=== PATIENT | male | born 1940 | race Caucasian/White ===

== ENCOUNTER 2018-03-03 17:54 | Observation (INO) ==
[2018-03-03] MEDS ORDERED: Ipratropium/Albuterol Neb 3 ML IH ONE (18:11)
[2018-03-03] MEDS ORDERED: methylPREDNISolone 125 MG/2 ML VIAL IVP ONE (18:11)
[2018-03-03 18:32] LABS: Basophils # 0.1 K/mcL (0.0-0.2); Eosinophils # 0.2 K/mcL (0.0-0.6); Eosinophils % 2.6 %; Hematocrit 38.6 % (37.5-50.1); Hemoglobin 13.2 g/dL (12.9-16.9); Immature Granulocytes % 0.4 % (0-4); Lymphocytes # 1.4 K/mcL (0.6-4.6); Mean Corpuscular HGB Conc 34.2 g/dL (31.6-35.5); Mean Corpuscular Hemoglobin 31.7 pg (28.0-33.3); Mean Corpuscular Volume 92.8 fL (83.0-100.0); Mean Platelet Volume 9.2 fL (9.4-12.4); Monocytes # 0.7 K/mcL (0.0-1.3); Monocytes % 9.4 %; Neutrophils # 5.3 K/mcL (1.6-8.9); Platelet Count 247 K/mcL (140-400); Red Blood Count 4.16 M/mcL (4.19-5.50); Red Cell Distribution Width 14.1 % (11.5-14.5); Segmented Neutrophils % 68.6 %
--- NOTE | 2018-03-03 18:48 | Emergency Department Note ---
Disposition Clinical Impression: Acute exacerbation of chronic obstructive airways disease Chest pain Qualifiers: Chest pain type: chest pain on breathing Qualified Code(s): R07.1 - Chest pain on breathing Community acquired pneumonia Qualifiers: Laterality: unspecified laterality Qualified Code(s): J18.9 - Pneumonia, unspecified organism Disposition: Admitted As Inpatient Condition: Fair Referrals: Ochoa Alva Jr, MD [Primary Care Provider] - Forms: ED Satisfaction Letter General Adult HPI - General Chief complaint: ED Chest Pain Stated complaint: CP Time Seen by Provider: 03/03/18 18:08 - History of Present Illness Pain Scale: 6 - Related Data Home Medications Medication Instructions Recorded Confirmed Albuterol Sulfate [Albuterol 2 puff IH Q4HR PRN 08/08/15 03/03/18 Inhaler] Aspirin 81 mg PO QAM 08/08/15 03/03/18 Oxygen 2.5 - 3 l NS AD 08/08/15 03/03/18 Roflumilast [Daliresp] 500 mcg PO QAM 08/08/15 03/03/18 Acetylcysteine 600 mg PO BID 06/29/16 03/03/18 [Z-[id number]-Cysteine] Isosorbide MONOnitrate [Isosorbide 120 mg PO DAILY 06/29/16 03/03/18 Mononitrate ER] Fluticasone Propionate Nasal 1 spr NS DAILY 03/03/18 03/03/18 [Flonase] Losartan [Cozaar] 25 mg PO DAILY 03/03/18 03/03/18 Montelukast [Singulair] 10 mg PO DAILY 03/03/18 03/03/18 Nitroglycerin [Nitrostat] 0.4 mg SL Q5M PRN 03/03/18 03/03/18 Umeclidinium [place] [Incruse 1 puff IH DAILY 03/03/18 03/03/18 Ellipta] Previous Rx's Medication Instructions Recorded Furosemide [Lasix] 40 mg PO BID #30 tab 07/01/16 Allergies Allergy/AdvReac Type Severity Reaction Status Date / Time Penicillins AdvReac See Verified 03/03/18 20:54 Comments Past Medical History - Past Medical History Medical history: Reports: COPD, coronary artery disease, hyperlipidemia, hypertension, myocardial infarction Surgical history: Reports: angioplasty/stent, herniorrhaphy Psychiatric history: Reports: anxiety - Social History Smoking Status: Former smoker Smokeless Tobacco Status: No Alcohol use: Reports: occasionally Drug use: Reports: none Course Vital Signs Temperature 97.9 F 03/03/18 17:59 Pulse Rate 105 03/03/18 17:59 Respiratory Rate 22 03/03/18 17:59 Blood Pressure 141/81 03/03/18 17:59 O2 Sat by Pulse Oximetry 89 03/03/18 17:59 Temperature 97.9 F 03/03/18 18:49 Pulse Rate 105 03/03/18 18:49 Respiratory Rate 20 03/03/18 18:49 Blood Pressure 141/81 03/03/18 18:49 O2 Sat by Pulse Oximetry 94 03/03/18 18:49 Oxygen Delivery Oxygen Delivery Nasal Cannula Medical Decision Making - Lab Data Result diagrams: 03/03/18 18:24 03/03/18 18:24 Lab Results 03/03/18 03/03/18 03/03/18 Range/Units 18:24 18:24 18:24 WBC 7.8 (4.3-11.1) K/mcL RBC 4.16 L (4.19-5.50) M/mcL Hgb 13.2 (12.9-16.9) g/dL Hct 38.6 (37.5-50.1) % MCV 92.8 (83.0-100.0) fL MCH 31.7 (28.0-33.3) pg MCHC 34.2 (31.6-35.5) g/dL RDW 14.1 (11.5-14.5) % Plt Count 247 (140-400) K/mcL MPV 9.2 L (9.4-12.4) fL Immature Gran % 0.4 (0-4) % Seg Neutrophils % 68.6 % Lymphocytes % 18.0 % Monocytes % 9.4 % Eosinophils % 2.6 % Basophils % 1.0 % Neutrophils # 5.3 (1.6-8.9) K/mcL Lymphocytes # 1.4 (0.6-4.6) K/mcL Monocytes # 0.7 (0.0-1.3) K/mcL Eosinophils # 0.2 (0.0-0.6) K/mcL Basophils # 0.1 (0.0-0.2) K/mcL D-Dimer (0-500) ng/mLFEU Sodium 136 (136-145) mEq/L Potassium 4.4 (3.5-5.1) mEq/L Chloride 102 (98-107) mEq/L Carbon Dioxide 31 H (23-29) mEq/L BUN 13 (8-23) mg/dL Creatinine 0.97 (0.70-1.30) mg/dL Est GFR ( Amer) > 60 (> 60) Est GFR (Non-Af Amer) > 60 (> 60) BUN/Creatinine Ratio 13 (6-26) Glucose 99 (70-105) mg/dL Calculated Osmolality 282 (280-300) Lactic Acid 1.1 (0.5-2.2) mmol/L Calcium 9.2 (8.6-10.3) mg/dL Total Bilirubin 0.3 (0.3-1.0) mg/dL Direct Bilirubin 0.0 (0.0-0.2) mg/dL Indirect Bilirubin 0.3 (0.0-1.2) mg/dL AST 20 (13-39) Units/L ALT 23 (7-52) Units/L Alkaline Phosphatase 64 (34-104) Units/L Troponin I < 0.03 (< 0.04) ng/mL B-Natriuretic Peptide (Less than 100) pg/mL Serum Total Protein 7.2 (6.4-8.9) g/dL Albumin 3.9 (3.5-5.7) g/dL Globulin 3.3 (2.4-3.5) g/dL Albumin/Globulin Ratio 1.2 (1.1-2.2) Lipase 16 (11-82) Units/L Urine Color (Yellow) Urine Clarity (Clear) Urine pH (5.0-8.0) pH Units Ur Specific Radiant (1.010-1.025) Urine Protein (Neg-Trace) mg/dL Urine Glucose (UA) (Normal) mg/dL Urine Ketones (Negative) mg/dL Urine Blood (Negative) Urine Nitrite (Negative) Urine Bilirubin (Negative) Urine Urobilinogen (Normal) mg/dL Ur Leukocyte Esterase (Negative) Ur Culture Indicated? (NO) 03/03/18 03/03/18 03/03/18 Range/Units 18:24 18:24 19:27 WBC (4.3-11.1) K/mcL RBC (4.19-5.50) M/mcL Hgb (12.9-16.9) g/dL Hct (37.5-50.1) % MCV (83.0-100.0) fL MCH (28.0-33.3) pg MCHC (31.6-35.5) g/dL RDW (11.5-14.5) % Plt Count (140-400) K/mcL MPV (9.4-12.4) fL Immature Gran % (0-4) % Seg Neutrophils % % Lymphocytes % % Monocytes % % Eosinophils % % Basophils % % Neutrophils # (1.6-8.9) K/mcL Lymphocytes # (0.6-4.6) K/mcL Monocytes # (0.0-1.3) K/mcL Eosinophils # (0.0-0.6) K/mcL Basophils # (0.0-0.2) K/mcL D-Dimer 794 H (0-500) ng/mLFEU Sodium (136-145) mEq/L Potassium (3.5-5.1) mEq/L Chloride (98-107) mEq/L Carbon Dioxide (23-29) mEq/L BUN (8-23) mg/dL Creatinine (0.70-1.30) mg/dL Est GFR ( Amer) (> 60) Est GFR (Non-Af Amer) (> 60) BUN/Creatinine Ratio (6-26) Glucose (70-105) mg/dL Calculated Osmolality (280-300) Lactic Acid (0.5-2.2) mmol/L Calcium (8.6-10.3) mg/dL Total Bilirubin (0.3-1.0) mg/dL Direct Bilirubin (0.0-0.2) mg/dL Indirect Bilirubin (0.0-1.2) mg/dL AST (13-39) Units/L ALT (7-52) Units/L Alkaline Phosphatase (34-104) Units/L Troponin I (< 0.04) ng/mL B-Natriuretic Peptide 20 (Less than 100) pg/mL Serum Total Protein (6.4-8.9) g/dL Albumin (3.5-5.7) g/dL Globulin (2.4-3.5) g/dL Albumin/Globulin Ratio (1.1-2.2) Lipase (11-82) Units/L Urine Color Yellow (Yellow) Urine Clarity Clear (Clear) Urine pH 5.5 (5.0-8.0) pH Units Ur Specific [place] 1.020 (1.010-1.025) Urine Protein Negative (Neg-Trace) mg/dL Urine Glucose (UA) Normal (Normal) mg/dL Urine Ketones Negative (Negative) mg/dL Urine Blood Negative (Negative) Urine Nitrite Negative (Negative) Urine Bilirubin Negative (Negative) Urine Urobilinogen Normal (Normal) mg/dL Ur Leukocyte Esterase Negative (Negative) Ur Culture Indicated? NO (NO) Attestation Statement - Attestation Attestation: I examined this patient and my medical decision-making was reviewed with the REPAIRER SWITCHGEAR/PA/Advanced Practice Nurse/Resident Physician. I agree with the documented findings, disposition and treatment plan as described except to the extent set forth below. The patient presents with chest pain and this is a pressure feeling and no radiation. There is a pleuritic aspect. Does have associated dyspnea but no diaphoresis. The patient does have COPD and does use home oxygen. His last cigarette was 4 or 5 months ago. Patient will receive DuoNeb, sign Medrol, labs including troponin and d-dimer. I did review the patient's EKG showing normal sinus rhythm with a rate of 69 and without acute ischemic change. Results pending. 1847 Patient does have pneumonia seen on chest x-ray and will be admitted for treatment with intravenous antibiotics. I am not able to identify recent hospitalizations or need for treatment of hospital-acquired pneumonia. The patient does have severe COPD with home oxygen and does have a tenuous status which will require admission for treatment of the pneumonia and to ensure that the patient improves 2033
[2018-03-03 19:00] LABS: BUN/Creatinine Ratio 13 (6-26); Blood Urea Nitrogen 13 mg/dL (8-23); Calcium 9.2 mg/dL (8.6-10.3); Carbon Dioxide 31 mEq/L (23-29); Chloride 102 mEq/L (98-107); Glucose 99 mg/dL (70-105); Osmolality,Calculated 282 (280-300); Potassium 4.4 mEq/L (3.5-5.1); Sodium 136 mEq/L (136-145); Troponin I < 0.03 ng/mL (< 0.04); eGFR For African Americans > 60 (> 60); eGFR For Non-African Americans > 60 (> 60)
[2018-03-03 19:32] LABS: Alanine Aminotransferase 23 Units/L (7-52); Albumin 3.9 g/dL (3.5-5.7); Albumin/Globulin Ratio 1.2 (1.1-2.2); Alkaline Phosphatase 64 Units/L (34-104); Aspartate Amino Transferase 20 Units/L (13-39); Bilirubin,Indirect 0.3 mg/dL (0.0-1.2); Bilirubin,Total 0.3 mg/dL (0.3-1.0); Globulin 3.3 g/dL (2.4-3.5); Lipase 16 Units/L (11-82); Total Protein 7.2 g/dL (6.4-8.9)
[2018-03-03 19:38] LABS: Bilirubin,Urine Negative (Negative); Blood,Urine Negative (Negative); Clarity,Urine Clear (Clear); Color,Urine Yellow (Yellow); Glucose,Urine (UA) Normal (Normal); Ketones,Urine Negative (Negative); Leukocyte Esterase,Urine Negative (Negative); Nitrite,Urine Negative (Negative); PH,Urine 5.5 pH Units (5.0-8.0); Protein,Urine Negative (Neg-Trace); Urobilinogen,Urine Normal (Normal)
[2018-03-03] MEDS ORDERED: Isovue-370 500 ML INFUS..BTL IV ONE (20:00)
[2018-03-03] MEDS ORDERED: Azithromycin 500 MG in D5% in Water 250 ML IVPB ONE (20:11)
[2018-03-03] MEDS ORDERED: cefTRIAXone 1,000 MG in Water for inj. (sterile) 20 ML 10 ML IVP ONE (20:12)
--- NOTE | 2018-03-03 20:16 | Emergency Department Note ---
Disposition Clinical Impression: Acute exacerbation of chronic obstructive airways disease Chest pain Qualifiers: Chest pain type: chest pain on breathing Qualified Code(s): R07.1 - Chest pain on breathing Community acquired pneumonia Qualifiers: Laterality: unspecified laterality Qualified Code(s): J18.9 - Pneumonia, unspecified organism Disposition: Admitted As Inpatient Condition: Fair Referrals: Ochoa Alva Jr, MD [Primary Care Provider] - Forms: ED Satisfaction Letter Time of Disposition: 20:56 Chest Pain HPI - General Chief Complaint: ED Chest Pain Stated Complaint: CP Time Seen by Provider: 03/03/18 18:08 Source: patient, family Limitations: no limitations - History of Present Illness Pt complaint: chest pain Onset (ago): hour(s) (approximately 90 minutes [employer]) Duration: constant Pain Location: substernal Severity scale (1-10): 6 Quality: heaviness Pain Radiation: none Worsens with: inspiration Associated symptoms: Reports: nausea, dyspnea, cough (thick green, dark sputum) . Denies: vomiting, diaphoresis, fever, leg swelling (not increased from his normal) Treatments prior to arrival chest pain: oxygen - Related Data On Oral Contraceptives: No Home Medications Medication Instructions Recorded Confirmed Albuterol Sulfate [Albuterol 2 puff IH Q4HR PRN 08/08/15 03/03/18 Inhaler] Aspirin 81 mg PO QAM 08/08/15 03/03/18 Oxygen 2.5 - 3 l NS AD 08/08/15 03/03/18 Roflumilast [Daliresp] 500 mcg PO QAM 08/08/15 03/03/18 Acetylcysteine 600 mg PO BID 06/29/16 03/03/18 [[id number]-Cysteine] Isosorbide MONOnitrate [Isosorbide 120 mg PO DAILY 06/29/16 03/03/18 Mononitrate ER] Fluticasone Propionate Nasal 1 spr NS DAILY 03/03/18 03/03/18 [Flonase] Losartan [Cozaar] 25 mg PO DAILY 03/03/18 03/03/18 Montelukast [Singulair] 10 mg PO DAILY 03/03/18 03/03/18 Nitroglycerin [Nitrostat] 0.4 mg SL Q5M PRN 03/03/18 03/03/18 Umeclidinium [place] [Incruse 1 puff IH DAILY 03/03/18 03/03/18 Ellipta] Previous Rx's Medication Instructions Recorded Furosemide [Lasix] 40 mg PO BID #30 tab 07/01/16 Allergies Allergy/AdvReac Type Severity Reaction Status Date / Time Penicillins AdvReac See Verified 03/03/18 20:54 Comments Constitutional: Denies: fever, chills Eyes: Denies: vision change Cardiovascular: Reports: as per HPI Respiratory: Reports: as per HPI Gastrointestinal: Reports: abdominal pain, nausea. Denies: vomiting (bilateral lower abdomen, "burning") Neurological: Reports: other (lightheadedness). Denies: numbness, paresthesias Chest Pain PMH - Past Medical History Medical history: Reports: COPD, coronary artery disease, hyperlipidemia, hypertension, myocardial infarction Surgical history: Reports: angioplasty/stent, herniorrhaphy Psychiatric history: Reports: anxiety - Social History Smoking Status: Former smoker Alcohol use: Reports: occasionally Drug use: Reports: none Physical Exam - General Limitations: no limitations General appearance: alert, in distress (mild), obese - Head Head exam: atraumatic, normocephalic - Eye Eye exam: Present: normal appearance, other (pupils equal bilaterally) - Neck Neck exam: Present: normal inspection, other (supple) - Chest Chest inspection: Present: normal inspection, symmetric chest wall rise. Absent : tenderness - Respiratory Respiratory exam: Present: wheezes (anterior), other (decreased breath sounds bilaterally, no rales or rhonchi). Absent: respiratory distress, accessory muscle use - Cardiovascular Cardiovascular exam: Present: normal rhythm, tachycardia, normal heart sounds. Absent: systolic murmur, diastolic murmur - Abdominal Exam Abdominal exam: Present: soft, tenderness Abdominal tenderness: Present: RLQ, LLQ, mild - Extremities Exam Extremities exam: Present: pedal edema - Neurological Exam Neurological exam: Present: alert, oriented X3, other (moves all extremities spontaneously). Absent: motor sensory deficit - Skin Skin exam: Present: warm, dry, intact. Absent: diaphoresis Course Vital Signs Temperature 97.9 F 03/03/18 17:59 Pulse Rate 105 03/03/18 17:59 Respiratory Rate 22 03/03/18 17:59 Blood Pressure 141/81 03/03/18 17:59 O2 Sat by Pulse Oximetry 89 03/03/18 17:59 Temperature 97.9 F 03/03/18 18:49 Pulse Rate 105 03/03/18 18:49 Respiratory Rate 20 03/03/18 18:49 Blood Pressure 141/81 03/03/18 18:49 O2 Sat by Pulse Oximetry 94 03/03/18 18:49 Oxygen Delivery Oxygen Delivery Nasal Cannula Chest Pain - MDM Narrative Medical decision making narrative: Pt is a 77-year-old gentleman with PMH of CHF, CAD, COPD on home oxygen presented to the emergency department for chest pain and shortness of breath. On arrival patient was afebrile, tachycardic at 105, normotensive, respirations 22, pulse ox 89%. EKG showed regular rate and NSR--no ST elevation or depression was seen and no T-wave abnormalities. Chest x-ray showed a small amount of right lung base opacity suspicious for pneumonia; no evidence for pleural effusion. Lab work shows WBC within normal limits, troponin < 0.03, BNP is not elevated, lactic acid 1.1, and was most notable for elevated d-dimer at 794. Placed on 2 L nasal cannula, received DuoNeb treatment, oxygenation has improved to 94%. For suspected COPD exacerbation secondary to pneumonia, he was given 125 mg IV Solu-Medrol, empiric antibiotic coverage with Rocephin and azithromycin. Getting his elevated d-dimer and pleuritic nature of his chest pain a CTA chest will be ordered for possibility pulmonary embolism - Lab Data Lab results reviewed: Yes I reviewed the patient's lab results. Result diagrams: 03/03/18 18:24 03/03/18 18:24 Lab Results 03/03/18 03/03/18 03/03/18 Range/Units 18:24 18:24 18:24 WBC 7.8 (4.3-11.1) K/mcL RBC 4.16 L (4.19-5.50) M/mcL Hgb 13.2 (12.9-16.9) g/dL Hct 38.6 (37.5-50.1) % MCV 92.8 (83.0-100.0) fL MCH 31.7 (28.0-33.3) pg MCHC 34.2 (31.6-35.5) g/dL RDW 14.1 (11.5-14.5) % Plt Count 247 (140-400) K/mcL MPV 9.2 L (9.4-12.4) fL Immature Gran % 0.4 (0-4) % Seg Neutrophils % 68.6 % Lymphocytes % 18.0 % Monocytes % 9.4 % Eosinophils % 2.6 % Basophils % 1.0 % Neutrophils # 5.3 (1.6-8.9) K/mcL Lymphocytes # 1.4 (0.6-4.6) K/mcL Monocytes # 0.7 (0.0-1.3) K/mcL Eosinophils # 0.2 (0.0-0.6) K/mcL Basophils # 0.1 (0.0-0.2) K/mcL D-Dimer (0-500) ng/mLFEU Sodium 136 (136-145) mEq/L Potassium 4.4 (3.5-5.1) mEq/L Chloride 102 (98-107) mEq/L Carbon Dioxide 31 H (23-29) mEq/L BUN 13 (8-23) mg/dL Creatinine 0.97 (0.70-1.30) mg/dL Est GFR ( Amer) > 60 (> 60) Est GFR (Non-Af Amer) > 60 (> 60) BUN/Creatinine Ratio 13 (6-26) Glucose 99 (70-105) mg/dL Calculated Osmolality 282 (280-300) Lactic Acid 1.1 (0.5-2.2) mmol/L Calcium 9.2 (8.6-10.3) mg/dL Total Bilirubin 0.3 (0.3-1.0) mg/dL Direct Bilirubin 0.0 (0.0-0.2) mg/dL Indirect Bilirubin 0.3 (0.0-1.2) mg/dL AST 20 (13-39) Units/L ALT 23 (7-52) Units/L Alkaline Phosphatase 64 (34-104) Units/L Troponin I < 0.03 (< 0.04) ng/mL B-Natriuretic Peptide (Less than 100) pg/mL Serum Total Protein 7.2 (6.4-8.9) g/dL Albumin 3.9 (3.5-5.7) g/dL Globulin 3.3 (2.4-3.5) g/dL Albumin/Globulin Ratio 1.2 (1.1-2.2) Lipase 16 (11-82) Units/L Urine Color (Yellow) Urine Clarity (Clear) Urine pH (5.0-8.0) pH Units Ur Specific [place] (1.010-1.025) Urine Protein (Neg-Trace) mg/dL Urine Glucose (UA) (Normal) mg/dL Urine Ketones (Negative) mg/dL Urine Blood (Negative) Urine Nitrite (Negative) Urine Bilirubin (Negative) Urine Urobilinogen (Normal) mg/dL Ur Leukocyte Esterase (Negative) Ur Culture Indicated? (NO) 03/03/18 03/03/18 03/03/18 Range/Units 18:24 18:24 19:27 WBC (4.3-11.1) K/mcL RBC (4.19-5.50) M/mcL Hgb (12.9-16.9) g/dL Hct (37.5-50.1) % MCV (83.0-100.0) fL MCH (28.0-33.3) pg MCHC (31.6-35.5) g/dL RDW (11.5-14.5) % Plt Count (140-400) K/mcL MPV (9.4-12.4) fL Immature Gran % (0-4) % Seg Neutrophils % % Lymphocytes % % Monocytes % % Eosinophils % % Basophils % % Neutrophils # (1.6-8.9) K/mcL Lymphocytes # (0.6-4.6) K/mcL Monocytes # (0.0-1.3) K/mcL Eosinophils # (0.0-0.6) K/mcL Basophils # (0.0-0.2) K/mcL D-Dimer 794 H (0-500) ng/mLFEU Sodium (136-145) mEq/L Potassium (3.5-5.1) mEq/L Chloride (98-107) mEq/L Carbon Dioxide (23-29) mEq/L BUN (8-23) mg/dL Creatinine (0.70-1.30) mg/dL Est GFR ( Amer) (> 60) Est GFR (Non-Af Amer) (> 60) BUN/Creatinine Ratio (6-26) Glucose (70-105) mg/dL Calculated Osmolality (280-300) Lactic Acid (0.5-2.2) mmol/L Calcium (8.6-10.3) mg/dL Total Bilirubin (0.3-1.0) mg/dL Direct Bilirubin (0.0-0.2) mg/dL Indirect Bilirubin (0.0-1.2) mg/dL AST (13-39) Units/L ALT (7-52) Units/L Alkaline Phosphatase (34-104) Units/L Troponin I (< 0.04) ng/mL B-Natriuretic Peptide 20 (Less than 100) pg/mL Serum Total Protein (6.4-8.9) g/dL Albumin (3.5-5.7) g/dL Globulin (2.4-3.5) g/dL Albumin/Globulin Ratio (1.1-2.2) Lipase (11-82) Units/L Urine Color Yellow (Yellow) Urine Clarity Clear (Clear) Urine pH 5.5 (5.0-8.0) pH Units Ur Specific [place] 1.020 (1.010-1.025) Urine Protein Negative (Neg-Trace) mg/dL Urine Glucose (UA) Normal (Normal) mg/dL Urine Ketones Negative (Negative) mg/dL Urine Blood Negative (Negative) Urine Nitrite Negative (Negative) Urine Bilirubin Negative (Negative) Urine Urobilinogen Normal (Normal) mg/dL Ur Leukocyte Esterase Negative (Negative) Ur Culture Indicated? NO (NO) - EKG Data EKG attestation: Yes I reviewed and interpreted this EKG. EKG shows normal: sinus rhythm Rate: tachycardia Rhythm: NSR
[2018-03-03] MEDS ORDERED: Maalox Oral Soln 30 mL PO PRN (22:44)
[2018-03-03] MEDS ORDERED: Acetaminophen 325 MG TABLET PO PRN (23:18)
[2018-03-03] MEDS ORDERED: Naloxone 0.4 MG/ML INJ IVP PRN (23:18)
[2018-03-03] MEDS ORDERED: GI Cocktail 40 ML EACH PO ONE (23:25)
[2018-03-03] MEDS ORDERED: Nitroglycerin 0.4 MG TAB.SUBL SL PRN (23:33)
[2018-03-03] MEDS ORDERED: Levofloxacin 500 MG/100 ML 500 MG/100 ML BAG IVPB SCH (23:45)
[2018-03-04] MEDS: Ipratropium/Albuterol Neb 3 ML IH SCH ×7 (00:06→23:22)
--- NOTE | 2018-03-04 00:11 | Internal Med History&Physical ---
<Lino Geronimo - Last Filed: 03/04/18 00:50> Date of Encounter: 03/04/18 Time of Encounter: 00:08 Internal Medicine - H&P: HPI Chief complaint: chest pain Admitted From: Emergency Dept Plans for Post Hospital Care: Home History of present illness: Mr. Marcial is a 77 year old male with past medical history of COPD(on 2 L of home oxygen continuously), chronic respiratory failure, coronary artery disease , hypertension, hyperlipidemia, TIFF, former smoker (put 6 months ago). Patient arrived to the emergency department with multiple complaints. He stated that he started to have chest pain since 5 PM this evening that was substandard all, not radiating, 07/04, worse with movement, better with rest. He states that his chest pain is a lot better currently. He denies fevers or chills. Patient also complains of abdominal pain that started around 2 PM today. He denies having any diarrhea, nausea, vomiting. Patient admits to shortness of breath with change in his sputum that is now dark green (usually clear), increased oxygen requirement from baseline(sometimes oxygen requirement goes as high as 4 L). He denies hematuria, hematochezia, dizziness. Past Med Surg Social Fam HX - Past Medical History Medical history: COPD, coronary artery disease, hyperlipidemia, hypertension, myocardial infarction Psychiatric history: anxiety, depression - Past Surgical History Surgical History: herniorrhaphy, tonsilectomy - Social History Smoking Status: Former smoker Smokeless Tobacco Status: No Alcohol use: occasionally Drug use: none - Family History Father Living Status: Hx Family Cardiac Disorders: Yes (HTN) Hx Family Neurologic Disorders: Yes (CVA) Mother Living Status: Age at : 80 Hx Family Respiratory Disorders: Yes (COPD) Hx Family Cancer: Yes Internal Medicine - H&P: Meds Albuterol Sulfate [Albuterol Inhaler] 2 puff IH Q4HR PRN 08/08/15 [History] Aspirin 81 mg PO QAM 08/08/15 [History] Oxygen 2.5 - 3 l NS AD 08/08/15 [History] Roflumilast [Daliresp] 500 mcg PO QAM 08/08/15 [History] Acetylcysteine [W-Qwfpli-f-Cysteine] 600 mg PO BID 06/29/16 [History] Isosorbide MONOnitrate [Isosorbide Mononitrate ER] 120 mg PO DAILY 06/29/16 [ History] Furosemide [Lasix] 40 mg PO BID #30 tab 07/01/16 [Rx] Fluticasone Propionate Nasal [Flonase] 1 spr NS DAILY 03/03/18 [History] Losartan [Cozaar] 25 mg PO DAILY 03/03/18 [History] Montelukast [Singulair] 10 mg PO DAILY 03/03/18 [History] Nitroglycerin [Nitrostat] 0.4 mg SL Q5M PRN 03/03/18 [History] Umeclidinium [place] [Incruse Ellipta] 1 puff IH DAILY 03/03/18 [History] 3 Allergy/AdvReac Type Severity Reaction Status Date / Time Penicillins AdvReac See Verified 03/03/18 20:54 Comments All Systems PM: A 10-system review of systems was performed and is negative for pertinent findings except as documented above in the HPI. - Constitutional Vitals: Temp Pulse Resp BP Pulse Ox 97.9 F 77 22 161/84 93 03/03/18 18:49 03/03/18 21:20 03/03/18 22:15 03/03/18 22:15 03/03/18 21:20 General appearance: Present: A&O X 3, pleasant, no acute distress, obese, answers questions appropriately - Head Head exam: Present: atraumatic, normocephalic - Neck Neck exam general surgery: Present: supple, trachea midline - Respiratory Additional comments: Significantly decreased breath sounds in all lung feels, inspiratory wheezing predominantly at the lung bases. - Cardiovascular Cardiovascular exam: Present: RRR, +S1, +S2 - GI/Abdominal Additional comments: Soft, distended, mild tenderness to palpation, hypoactive bowel sounds. - Extremities Exam Extremities exam: Absent: cyanotic, pedal edema - Neurological Exam Neurological exam: Present: alert, oriented X3, no focal deficits - Skin Skin exam: Present: intact Internal Med - H&P Results - Labs CBC & Chem 7: 03/03/18 18:24 03/03/18 18:24 - Assessment and plan (1) Acute exacerbation of chronic obstructive airways disease Current Visit: No Status: Acute Assessment and plan: Chest x-ray showed small capacity at the base of the right lower lung, concern for pneumonia Patient received methylprednisolone, Rocephin and Zithromax in the emergency department. Plan: start Levaquin scheduled duonebs IV methylprednisolone b.i.d. Symbicort (2) Chest pain Current Visit: No Status: Resolved Assessment and plan: Patient complains of typical chest pain. EKG showed no acute ST changes, no concern for ischemia. CTA done in the emergency department showed no evidence of PE, however the subsegmental pulmonary arteries were not well visualized. Patient had cardiac catheterization on 03/05/16 that showed mild to moderate atherosclerotic coronary artery disease, EF 65%, optimal medical management was recommended at that time. Last echo from 03/04/16 showed EF 60-60 percent, normal LV chamber size, wall thickness, function, mild LV diastolic dysfunction, atypical septal motion consistent with bundle branch block, normal right ventricular structure and function, no pulmonary hypertension, no valvular dysfunction. Plan: etiology of chest pain unclear at this time, but could be due to pneumonia/COPD exacerbation. Repeat echo continue to trend troponins continue home meds aspirin and nitroglycerin. added metoprolol and atorvastatin consider stress test, consider consult to cardio if chest pain persists Qualifiers: Chest pain type: unspecified Qualified Code(s): R07.9 - Chest pain, unspecified (3) HTN (hypertension) Current Visit: No Status: Chronic Assessment and plan: Continue home medications Qualifiers: Hypertension type: essential hypertension Qualified Code(s): I10 - Essential (primary) hypertension (4) Obesity (BMI 30-39.9) Current Visit: No Status: Chronic (5) DVT prophylaxis Current Visit: No Status: Acute Assessment and plan: Heparin SQ (6) CAD (coronary artery disease) Current Visit: Yes Status: Acute Assessment and plan: Patient had cardiac catheterization on 03/05/16 that showed mild to moderate atherosclerotic coronary artery disease, EF 65%, optimal medical management was recommended at that time. continue asa, added BB and statin Qualifiers: Coronary Disease-Associated Artery/Lesion type: [place] artery [place] vs. transplanted heart: [place] heart Associated angina: with stable angina Qualified Code(s): I25.118 - Atherosclerotic heart disease of [place] coronary artery with other forms of angina pectoris - Time Spent With Patient Total time spent is greater than 50% in coordination of care (as documented) at patient's floor/unit and/or counseling patient: <Ángela Barajas - Last Filed: 03/04/18 01:05> Date of Encounter: 03/04/18 Internal Medicine - H&P: HPI History of present illness: Mr. Marcial is a 77 year old male All Systems PM: A 10-system review of systems was performed and is negative for pertinent findings except as documented above in the HPI. - Constitutional Vitals: Temp Pulse Resp BP Pulse Ox 98.5 F 79 18 148/78 92 03/04/18 00:40 03/04/18 00:40 03/04/18 00:40 03/04/18 00:40 03/04/18 00:40 Internal Med - H&P Results - Labs CBC & Chem 7: 03/03/18 18:24 03/03/18 18:24 - Attending Attestation I have seen and examined this patient independently. I have discussed with resident physician Dr. Geronimo regarding the management. Agree with the documentation. - Assessment and plan (1) Chest pain Current Visit: No Status: Resolved Qualifiers: Chest pain type: unspecified Qualified Code(s): R07.9 - Chest pain, unspecified (2) DVT prophylaxis Current Visit: No Status: Acute (3) Acute exacerbation of chronic obstructive airways disease Current Visit: No Status: Acute (4) HTN (hypertension) Current Visit: No Status: Chronic Qualifiers: Hypertension type: essential hypertension Qualified Code(s): I10 - Essential (primary) hypertension (5) Obesity (BMI 30-39.9) Current Visit: No Status: Chronic (6) CAD (coronary artery disease) Current Visit: Yes Status: Acute Qualifiers: Coronary Disease-Associated Artery/Lesion type: [place] artery [place] vs. transplanted heart: [place] heart Associated angina: with stable angina Qualified Code(s): I25.118 - Atherosclerotic heart disease of [place] coronary artery with other forms of angina pectoris - Time Spent With Patient Total time spent is greater than 50% in coordination of care (as documented) at patient's floor/unit and/or counseling patient:
[2018-03-04] MEDS: Budesonide/Formoterol 80/4.5 MDI IH SCH ×3 (01:03→23:03)
[2018-03-04 01:09] LABS: Basophils % 0.2 %; Hematocrit 39.7 % (37.5-50.1); Hemoglobin 12.8 g/dL (12.9-16.9); Immature Granulocytes % 0.9 % (0-4); Lymphocytes # 0.3 K/mcL (0.6-4.6); Lymphocytes % 3.6 %; Mean Corpuscular HGB Conc 32.2 g/dL (31.6-35.5); Mean Corpuscular Volume 93.2 fL (83.0-100.0); Mean Platelet Volume 9.5 fL (9.4-12.4); Monocytes # 0.1 K/mcL (0.0-1.3); Monocytes % 0.5 %; Platelet Count 248 K/mcL (140-400); Red Blood Count 4.26 M/mcL (4.19-5.50); Red Cell Distribution Width 14.1 % (11.5-14.5); Segmented Neutrophils % 94.8 %
[2018-03-04 01:31] LABS: BUN/Creatinine Ratio 14 (6-26); Blood Urea Nitrogen 12 mg/dL (8-23); Carbon Dioxide 24 mEq/L (23-29); Chloride 101 mEq/L (98-107); Glucose 147 mg/dL (70-105); Osmolality,Calculated 278 (280-300); Phosphorous 2.3 mg/dL (2.7-4.5); Potassium 4.5 mEq/L (3.5-5.1); Sodium 133 mEq/L (136-145); eGFR For African Americans > 60 (> 60); eGFR For Non-African Americans > 60 (> 60)
[2018-03-04] MEDS: *HR* Heparin 5,000 UNIT/ML VIAL SQ SCH ×2 (05:42→16:57)
[2018-03-04] MEDS: MethylPREDNISolone 40 MG/ML VIAL IVP SCH ×2 (05:42→16:57)
[2018-03-04] MEDS ORDERED: *HR* Acetylcysteine 20% 600 MG/3 ML ORAL SYRINGE PO SCH (09:00)
[2018-03-04] MEDS ORDERED: Furosemide 20 MG TABLET PO SCH (09:00)
[2018-03-04] MEDS: Isosorbide MONOnitrate (24 HR) 60 MG TAB.ER.24H PO SCH (09:10)
[2018-03-04] MEDS: Furosemide 20 MG TABLET PO SCH ×2 (09:10→16:57)
[2018-03-04] MEDS: Aspirin 81 MG TAB.CHEW PO SCH (09:10)
[2018-03-04] MEDS ORDERED: NON-FORMULARY MEDICATION 1 EACH EACH (Umeclidinium Bromide [Incruse Ellipta] 1 PUFF) IH SCH (09:45)
[2018-03-04] MEDS ORDERED: NON-FORMULARY MEDICATION 1 EACH EACH (Roflumilast [Daliresp] 500 MCG) PO SCH (09:45)
[2018-03-04] MEDS ORDERED: Fluticasone Propionate Nasal 50 MCG/SPRAY BOTTLE NS SCH (09:45)
[2018-03-04] MEDS: Acetylcysteine 10% 2 ML INHSOL IH SCH ×2 (16:09→23:04)
[2018-03-04] MEDS: Loratadine 10 MG TABLET PO SCH (16:57)
[2018-03-04] MEDS ORDERED: levoFLOXacin 500 MG TABLET PO SCH (18:00)
--- NOTE | 2018-03-04 18:55 | Internal Med Progress Note ---
Date of Encounter: 03/04/18 Time of Encounter: 14:37 - Assessment and plan (1) Chest pain Current Visit: Yes Status: Resolved Assessment and plan: Resolved. No further episodes. Was likely secondary to respiratory issues. Troponin trended negative x 3. ECHO showed LVEF 60-65%, normal LV size and function, mild concentric LV hypertrophy, mild LV diastolic dysfunction, normal RV structure and function, no evidence of pulmonary hypertension, and no significant valvular dysfunction. Continue home medications and new metoprolol and atorvastatin. No indication for stress test at this time. Qualifiers: Chest pain type: unspecified Qualified Code(s): R07.9 - Chest pain, unspecified (2) Acute exacerbation of chronic obstructive airways disease Current Visit: Yes Status: Acute Assessment and plan: Improving, but still with significant wheezing. Continue IV methylprednisolone and IV levaquin. Continue scheduled duonebs and symbicort. Added claritin, inhaled mucomyst, chest PT, and incentive spirometry. (3) Pneumonia Current Visit: Yes Status: Suspected Assessment and plan: High suspicion based on CXR and previous history. Continue IV levaquin. Continue respiratory interventions as per above. Qualifiers: Pneumonia type: due to unspecified organism Laterality: unspecified laterality Lung location: unspecified part of lung Qualified Code(s): J18.9 - Pneumonia, unspecified organism (4) HTN (hypertension) Current Visit: Yes Status: Chronic Assessment and plan: Continue home medications. Qualifiers: Hypertension type: essential hypertension Qualified Code(s): I10 - Essential (primary) hypertension (5) Obesity (BMI 30-39.9) Current Visit: Yes Status: Chronic Assessment and plan: Counselled on lifestyle modifications. (6) CAD (coronary artery disease) Current Visit: Yes Status: Chronic Assessment and plan: Plan as per above. Qualifiers: Coronary Disease-Associated Artery/Lesion type: [place] artery [place] vs. transplanted heart: [place] heart Associated angina: with stable angina Qualified Code(s): I25.118 - Atherosclerotic heart disease of [place] coronary artery with other forms of angina pectoris (7) DVT prophylaxis Current Visit: Yes Status: Acute Assessment and plan: Continue SQ heparin. - Time Spent With Patient Total time spent is greater than 50% in coordination of care (as documented) at patient's floor/unit and/or counseling patient: less than 15 minutes - Subjective Interval history: Patient had no acute events overnight. He states: "I know I have pneumonia because my sputum is green." He states that his breathing is better; about 80% back to baseline. He denies any more chest pain, and thinks it was likely due to his "pneumonia." He denies fever, chills, nausea, or vomiting. He has no other complaints at this time. - Constitutional Vitals: Temp Pulse Resp BP Pulse Ox 98.6 F 83 18 165/67 92 03/04/18 15:16 03/04/18 15:16 03/04/18 16:12 03/04/18 15:16 03/04/18 16:12 General appearance: Present: cooperative, A&O X 3, pleasant, no acute distress, obese, answers questions appropriately - Respiratory Respiratory exam: Absent: accessory muscle use, rales, rhonchi Additional comments: Mildly labored WOB, moderate expiratory wheezing bilaterally - Cardiovascular Cardiovascular exam: Present: RRR, +S1, +S2. Absent: diastolic murmur, gallop, rubs, systolic murmur Additional comments: No BLE edema - GI/Abdominal GI/Abdominal exam: Present: normal bowel sounds, soft. Absent: distended, hepatomegaly, mass, splenomegaly, tenderness - Psychiatric Psychiatric exam: Present: normal affect, normal mood. Absent: agitated, anxious, depressed - Skin Skin exam: Present: dry, intact, warm. Absent: cyanosis, rash Internal Medicine: Result - Labs CBC & Chem 7: 03/04/18 00:29 03/04/18 00:29 Labs: Cardiac Enzymes 03/04/18 Range/Units 06:10 Troponin I < 0.03 (< 0.04) ng/mL - ABG Interpretation ABG results: PT/INR, D-dimer D-Dimer 794 ng/mLFEU (0-500) H 03/03/18 18:24 Consult Discharge Plan - Plan Referrals: Ochoa Alva Jr, MD [Primary Care Provider] -
[2018-03-05] MEDS: Ipratropium/Albuterol Neb 3 ML IH SCH ×4 (03:48→15:11)
[2018-03-05] MEDS: Acetylcysteine 10% 2 ML INHSOL IH SCH ×3 (03:49→15:11)
[2018-03-05 03:58] LABS: Basophils % 0.1 %; Hematocrit 38.3 % (37.5-50.1); Hemoglobin 12.9 g/dL (12.9-16.9); Immature Granulocytes % 0.7 % (0-4); Lymphocytes # 0.9 K/mcL (0.6-4.6); Lymphocytes % 6.2 %; Mean Corpuscular HGB Conc 33.7 g/dL (31.6-35.5); Mean Corpuscular Hemoglobin 31.1 pg (28.0-33.3); Mean Corpuscular Volume 92.3 fL (83.0-100.0); Mean Platelet Volume 9.6 fL (9.4-12.4); Monocytes # 0.7 K/mcL (0.0-1.3); Monocytes % 4.6 %; Neutrophils # 13.3 K/mcL (1.6-8.9); Platelet Count 269 K/mcL (140-400); Red Blood Count 4.15 M/mcL (4.19-5.50); Red Cell Distribution Width 14.4 % (11.5-14.5); Segmented Neutrophils % 88.4 %
[2018-03-05 04:11] LABS: BUN/Creatinine Ratio 20 (6-26); Blood Urea Nitrogen 20 mg/dL (8-23); Calcium 9.4 mg/dL (8.6-10.3); Carbon Dioxide 26 mEq/L (23-29); Chloride 102 mEq/L (98-107); Glucose 130 mg/dL (70-105); Osmolality,Calculated 286 (280-300); Potassium 4.2 mEq/L (3.5-5.1); Sodium 136 mEq/L (136-145); eGFR For African Americans > 60 (> 60); eGFR For Non-African Americans > 60 (> 60)
[2018-03-05] MEDS: MethylPREDNISolone 40 MG/ML VIAL IVP SCH (05:49)
[2018-03-05] MEDS: *HR* Heparin 5,000 UNIT/ML VIAL SQ SCH (05:49)
[2018-03-05] MEDS: Budesonide/Formoterol 80/4.5 MDI IH SCH (07:13)
[2018-03-05] MEDS ORDERED: Fluticasone Propionate Nasal 50 MCG/SPRAY BOTTLE NS SCH (09:00)
[2018-03-05] MEDS: Loratadine 10 MG TABLET PO SCH (09:11)
[2018-03-05] MEDS: Isosorbide MONOnitrate (24 HR) 60 MG TAB.ER.24H PO SCH (09:11)
[2018-03-05] MEDS: Aspirin 81 MG TAB.CHEW PO SCH (09:11)
[2018-03-05] MEDS: Furosemide 20 MG TABLET PO SCH (09:11)
[2018-03-05 10:53] VITALS: BP 113/58
--- NOTE | 2018-03-05 16:29 | Discharge Summary ---
- NOTES TO OUTPATIENT PROVIDER Notes to Outpatient Provider: Follow up with PCP in 2-3 days after discharge. Recheck CBC at that time (COPD on steroids, pneumonia). Follow up with cardiology as directed. Orders not resulted at time of discharge: Pending orders 03/06/18 04:00 Basic Metabolic Panel AM 0400 CBC [Complete Blood Count] [HEME] AM 0400 Date of Encounter: 03/05/18 Time of Encounter: 13:47 - Discharge Diagnosis (1) Chest pain Priority: Primary Status: Resolved Qualifiers: Chest pain type: unspecified Qualified Code(s): R07.9 - Chest pain, unspecified (2) Acute exacerbation of chronic obstructive airways disease Priority: Secondary Status: Acute (3) Pneumonia Priority: Secondary Status: Suspected Qualifiers: Pneumonia type: due to unspecified organism Laterality: unspecified laterality Lung location: unspecified part of lung Qualified Code(s): J18.9 - Pneumonia, unspecified organism (4) HTN (hypertension) Priority: Secondary Status: Chronic Qualifiers: Hypertension type: essential hypertension Qualified Code(s): I10 - Essential (primary) hypertension (5) Obesity (BMI 30-39.9) Priority: Secondary Status: Chronic (6) CAD (coronary artery disease) Priority: Secondary Status: Chronic Qualifiers: Coronary Disease-Associated Artery/Lesion type: [place] artery [place] vs. transplanted heart: [place] heart Associated angina: with stable angina Qualified Code(s): I25.118 - Atherosclerotic heart disease of [place] coronary artery with other forms of angina pectoris (7) DVT prophylaxis Priority: Secondary Status: Acute Hospital course: Mr. Marcial is a 77 year old male admitted for chest pain likely secondary to acute exacerbation of chronic obstructive pulmonary disease. Patient was admitted to general medical floor with telemetry. Cardiac enzymes trended negative x 3. ECHO was obtained and showed LVEF 60-65%, normal LV size and function, mild concentric LV hypertrophy, mild LV diastolic dysfunction, normal RV structure and function, no pulmonary hypertension, and no valvular dysfunction. He was started on IV solumedrol, scheduled duonebs, IV levaquin, and symbicort for acute exacerbation of COPD. Claritin, inhaled mucomyst, chest PT, and incentive spirometry were subsequently started. Respiratory status improved over next 2 days. Chest pain resolved with improvement in respirations. Today, patient states that he is back to his baseline respiratory status, and he wants to go home. He will follow up with PCP in 2-3 days after discharge. BMP can be rechecked at that time (COPD on steroids, pneumonia). Patient has met maximum benefit of this hospitalization and will be discharged home in stable condition. Discharge discussed with: patient, nurse - Time Spent with Patient Total time spent providing and/or coordinating discharge services: Greater than 30 minutes - Discharge Medications Prescriptions: Atorvastatin [Lipitor] 40 mg PO HS 7 Days #7 tablet levoFLOXacin [Levaquin] 500 mg PO Q24H 5 Days #5 tablet Metoprolol [Lopressor] 12.5 mg PO BID 7 Days #14 tablet predniSONE [PredniSONE] See Taper PO DAILY 16 Days #40 tablet Home Medications: Albuterol Sulfate [Albuterol Inhaler] 2 puff IH Q4HR PRN 08/08/15 [History] Aspirin 81 mg PO QAM 08/08/15 [History] Oxygen 2.5 - 3 l NS AD 08/08/15 [History] Roflumilast [Daliresp] 500 mcg PO QAM 08/08/15 [History] Acetylcysteine [W-Jhnsxv-j-Cysteine] 600 mg PO BID 06/29/16 [History] Isosorbide MONOnitrate [Isosorbide Mononitrate ER] 120 mg PO DAILY 06/29/16 [ History] Furosemide [Lasix] 40 mg PO BID #30 tab 07/01/16 [Rx] Fluticasone Propionate Nasal [Flonase] 1 spr NS DAILY 03/03/18 [History] Losartan [Cozaar] 25 mg PO DAILY 03/03/18 [History] Montelukast [Singulair] 10 mg PO DAILY 03/03/18 [History] Nitroglycerin [Nitrostat] 0.4 mg SL Q5M PRN 03/03/18 [History] Umeclidinium [place] [Incruse Ellipta] 1 puff IH DAILY 03/03/18 [History] Atorvastatin [Lipitor] 40 mg PO HS 7 Days #7 tablet 03/05/18 [Rx] Metoprolol [Lopressor] 12.5 mg PO BID 7 Days #14 tablet 03/05/18 [Rx] levoFLOXacin [Levaquin] 500 mg PO Q24H 5 Days #5 tablet 03/05/18 [Rx] predniSONE [PredniSONE] See Taper PO DAILY 16 Days #40 tablet 03/05/18 [Rx] Allergies/Adverse Reactions: 3 Allergy/AdvReac Type Severity Reaction Status Date / Time Penicillins AdvReac See Verified 03/03/18 20:54 Comments Date of admission: 03/04/18 01:06 Primary care physician: Ochoa Alva Jr, MD Discharging clinician: Jose Salgado Anticipated date of discharge: 03/05/18 - Constitutional Vitals: Temp Pulse Resp BP Pulse Ox 98.5 F 62 16 113/58 90 03/05/18 10:52 03/05/18 10:52 03/05/18 15:11 03/05/18 10:52 03/05/18 15:11 General appearance: Present: cooperative, A&O X 3, pleasant, no acute distress, obese, answers questions appropriately - Respiratory Respiratory exam: Present: CTAB. Absent: accessory muscle use, rales, rhonchi, wheezes Additional comments: Normal WOB - Cardiovascular Cardiovascular exam: Present: RRR, +S1, +S2. Absent: diastolic murmur, gallop, rubs, systolic murmur Additional comments: No BLE edema - GI/Abdominal GI/Abdominal exam: Present: normal bowel sounds, soft. Absent: distended, hepatomegaly, mass, splenomegaly, tenderness - Psychiatric Psychiatric exam: Present: normal affect, normal mood. Absent: agitated, anxious, depressed - Skin Skin exam: Present: dry, intact, warm. Absent: cyanosis, rash - Patient Status Disposition: Home, Self-Care Condition: Good Overall status at discharge: patient is progressing back to baseline - Discharge Instructions Instructions: Chronic Obstructive Pulmonary Disease (DC) Follow Up With: Ochoa Alva Jr, MD [Primary Care Provider] - Additional Instructions: Follow up with PCP in 2-3 days after discharge. Recheck CBC at that time (COPD on steroids, pneumonia). Follow up with cardiology as directed. - Diet and Activity Activity: resume usual activities as tolerated Diet: low fat, low cholesterol, low salt diet, other (Cardiac Diet)
--- NOTE | 2018-03-07 05:44 | Electrocardiograph Report ---
[place] [id number] Test Date: 2018-03-03 Pat Name: Fredis Marcial Department: [id number] Room: 2A42 Gender: M In Home Sales Representative: RYAN : 1940 Requested By: [id number] Order Number: [id number] Reading MD: Manoj Graf Measurements Intervals [place] Rate: 69 P: 68 WV: 193 QRS: 80 QRSD: 102 T: 70 QT: 396 QTc: 415 Interpretive Statements SINUS RHYTHM Electronically Signed On 03-07-2018 5:42:54 EDT by Manoj Graf
== END 2018-03-05 17:00 | disposition home or self-care (01) ==
LOC: EMEROO 17:54 → 2ANU 17:54
PROVIDERS: ADMIT Internal Medicine; ATTEND Internal Medicine

== ENCOUNTER 2021-12-23 03:23 | Observation (INO) ==
[2021-12-23] MEDS ORDERED: methylPREDNISolone 125 MG/2 ML VIAL IVP ONE (03:36)
[2021-12-23] MEDS ORDERED: Ipratropium/Albuterol Neb 3 ML IH ONE (03:36)
[2021-12-23 04:13] LABS: Basophils # 0.1 K/mcL (0.0-0.2); Basophils % 0.5 %; Eosinophils # 0.1 K/mcL (0.0-0.6); Eosinophils % 1.3 %; Hematocrit 25.7 % (37.5-50.1); Hemoglobin 7.4 g/dL (12.9-16.9); Immature Granulocytes % 0.5 % (0-4); Lymphocytes # 1.7 K/mcL (0.6-4.6); Lymphocytes % 19.1 %; Mean Corpuscular HGB Conc 28.8 g/dL (31.6-35.5); Mean Corpuscular Hemoglobin 23.6 pg (28.0-33.3); Mean Corpuscular Volume 81.8 fL (83.0-100.0); Mean Platelet Volume 9.6 fL (9.4-12.4); Monocytes # 0.7 K/mcL (0.0-1.3); Monocytes % 7.4 %; Neutrophils # 6.5 K/mcL (1.6-8.9); Platelet Count 345 K/mcL (140-400); Red Blood Count 3.14 M/mcL (4.19-5.50); Segmented Neutrophils % 71.2 %; White Blood Count 9.1 K/mcL (4.3-11.1)
[2021-12-23 04:13] LABS: VBG HCO3 34 mEq/L (21-27); VBG PCO2 67 mmHg (41-51); VBG PH 7.32 pH Units (7.32-7.42); VBG PO2 52 mmHg (25-50)
[2021-12-23] MEDS ORDERED: Albuterol 2.5 MG/3 ML NEBULIZER IH ONE (04:30)
[2021-12-23 04:32] LABS: Alanine Aminotransferase 17 Units/L (7-52); Albumin 4.1 g/dL (3.5-5.7); Albumin/Globulin Ratio 1.6 (1.1-2.2); Alkaline Phosphatase 49 Units/L (34-104); Aspartate Amino Transferase 18 Units/L (13-39); BUN/Creatinine Ratio 24 (6-26); Bilirubin,Total 0.2 mg/dL (0.3-1.0); Blood Urea Nitrogen 26 mg/dL (8-23); Calcium 9.4 mg/dL (8.6-10.3); Carbon Dioxide 35 mEq/L (23-29); Chloride 99 mEq/L (98-107); Globulin 2.5 g/dL (2.4-3.5); Glucose 98 mg/dL (70-105); Osmolality,Calculated 293 (280-300); Potassium 4.4 mEq/L (3.5-5.1); Sodium 139 mEq/L (136-145); Total Protein 6.6 g/dL (6.4-8.9); Troponin I < 0.03 ng/mL (< 0.04); eGFR For African Americans > 60 (> 60); eGFR For Non-African Americans > 60 (> 60)
[2021-12-23] MEDS ORDERED: Azithromycin 250 MG TABLET PO ONE (05:14)
[2021-12-23] MEDS ORDERED: cefTRIAXone 1,000 MG in 0.9 % Sodium Chloride 10 ML IVP ONE (05:14)
[2021-12-23 05:31] LABS: Adenovirus Not Detected (Not Detect); Bordetella Pertussis Not Detected (Not Detect); Chlamydophila pneumoniae Not Detected (Not Detect); Coronavirus 229E Not Detected (Not Detect); Coronavirus HKU1 Not Detected (Not Detect); Coronavirus NL63 Not Detected (Not Detect); Coronavirus OC43 Not Detected (Not Detect); Human Metapneumovirus Not Detected (Not Detect); Human Rhinovirus/Enterovirus Not Detected (Not Detect); Influenza A Subtype 2009 H1 Not Detected (Not Detect); Influenza B Not Detected (Not Detect); Mycoplasma pneumoniae Not Detected (Not Detect); Parainfluenza Virus 1 Not Detected (Not Detect); Parainfluenza Virus 2 Not Detected (Not Detect); Parainfluenza Virus 3 Not Detected (Not Detect); Parainfluenza Virus 4 Not Detected (Not Detect); Respiratory Syncytial Virus Not Detected (Not Detect); SARS-CoV-2 Not Detected (Not Detect)
[2021-12-23] MEDS ORDERED: Ondansetron ODT 4 MG TAB.RAPDIS SL PRN (07:22)
[2021-12-23] MEDS ORDERED: Melatonin 3 MG TABLET PO PRN (07:22)
[2021-12-23] MEDS ORDERED: Mag Hydrox/Al Hydrox/Simeth 30 ML UDC PO PRN (07:22)
[2021-12-23] MEDS ORDERED: Naloxone 0.4 MG/ML INJ IVP PRN (07:22)
[2021-12-23] MEDS ORDERED: Acetaminophen 325 MG TABLET PO PRN (07:22)
[2021-12-23] MEDS ORDERED: Albuterol 2.5 MG/3 ML NEBULIZER IH PRN (07:25)
[2021-12-23] MEDS: Ipratropium/Albuterol Neb 3 ML IH SCH ×5 (07:54→23:29)
[2021-12-23 10:35] LABS: % Iron Saturation 2 % (20-55); Iron 11 mcg/dL (65-175); Transferrin 347 mg/dL (203-362)
[2021-12-23 10:46] LABS: Ferritin < 8 ng/mL (20-250)
[2021-12-23] MEDS ORDERED: Nitroglycerin 0.4 MG TAB.SUBL SL PRN (12:55)
[2021-12-23] MEDS: Fluticasone Propionate Nasal 50 MCG/SPRAY BOTTLE NS SCH ×2 (17:08→21:30)
[2021-12-23] MEDS: *HR* Heparin 5,000 UNIT/ML VIAL SQ SCH (17:14)
[2021-12-23] MEDS ORDERED: *HR* Acetylcysteine 20% 600 MG/3 ML ORAL SYRINGE PO SCH (21:00)
[2021-12-23] MEDS: (Roflumilast [Daliresp] 500 MCG Tablet) PO SCH (21:30)
[2021-12-24 02:57] LABS: Basophils % 0.2 %; Eosinophils # 0.1 K/mcL (0.0-0.6); Eosinophils % 0.3 %; Hematocrit 25.3 % (37.5-50.1); Hemoglobin 7.4 g/dL (12.9-16.9); Immature Granulocytes % 0.6 % (0-4); Lymphocytes # 0.6 K/mcL (0.6-4.6); Lymphocytes % 3.7 %; Mean Corpuscular HGB Conc 29.2 g/dL (31.6-35.5); Mean Corpuscular Hemoglobin 23.6 pg (28.0-33.3); Mean Corpuscular Volume 80.6 fL (83.0-100.0); Monocytes % 4.9 %; Neutrophils # 13.7 K/mcL (1.6-8.9); Platelet Count 350 K/mcL (140-400); Red Blood Count 3.14 M/mcL (4.19-5.50); Segmented Neutrophils % 90.3 %
[2021-12-24 03:02] LABS: Monocytes # 0.7 K/mcL (0.0-1.3); White Blood Count 15.2 K/mcL (4.3-11.1)
[2021-12-24 03:15] LABS: BUN/Creatinine Ratio 27 (6-26); Blood Urea Nitrogen 26 mg/dL (8-23); Calcium 9.2 mg/dL (8.6-10.3); Carbon Dioxide 32 mEq/L (23-29); Chloride 95 mEq/L (98-107); Glucose 107 mg/dL (70-105); Osmolality,Calculated 285 (280-300); Potassium 4.2 mEq/L (3.5-5.1); Sodium 135 mEq/L (136-145); eGFR For African Americans > 60 (> 60); eGFR For Non-African Americans > 60 (> 60)
[2021-12-24] MEDS: Ipratropium/Albuterol Neb 3 ML IH SCH ×5 (03:39→20:33)
[2021-12-24] MEDS ORDERED: cefTRIAXone 1,000 MG in 0.9 % Sodium Chloride 10 ML IVP SCH (05:00)
[2021-12-24] MEDS ORDERED: Azithromycin 500 MG in 0.9 % Sodium Chloride 250 ML IVPB SCH (05:00)
[2021-12-24] MEDS: *HR* Heparin 5,000 UNIT/ML VIAL SQ SCH ×2 (05:29→18:15)
[2021-12-24] MEDS ORDERED: predniSONE 20 MG TABLET PO SCH (09:00)
[2021-12-24] MEDS: levoFLOXacin 750 MG/150 ML 750 MG/150 ML BAG IVPB SCH (09:20)
[2021-12-24] MEDS: Fluticasone Propionate Nasal 50 MCG/SPRAY BOTTLE NS SCH ×3 (09:20→20:41)
[2021-12-24] MEDS: Furosemide 40 MG TABLET PO SCH (09:21)
[2021-12-24] MEDS: Aspirin 81 MG TAB.CHEW PO SCH (09:21)
[2021-12-24] MEDS: predniSONE 20 MG TABLET PO SCH (09:21)
[2021-12-24] MEDS: Acetylcysteine 10% 2 ML INHSOL IH SCH ×3 (11:18→20:33)
[2021-12-24] MEDS ORDERED: *HR* LORazepam 0.5 MG TABLET PO PRN (14:55)
[2021-12-24] MEDS: (Roflumilast [Daliresp] 500 MCG Tablet) PO SCH (20:43)
[2021-12-25] MEDS: Acetylcysteine 10% 2 ML INHSOL IH SCH ×4 (00:38→11:17)
[2021-12-25] MEDS: Ipratropium/Albuterol Neb 3 ML IH SCH ×4 (00:38→11:17)
[2021-12-25 02:47] LABS: Hematocrit 25.4 % (37.5-50.1); Hemoglobin 7.4 g/dL (12.9-16.9); Immature Granulocytes % 0.8 % (0-4); Lymphocytes # 0.3 K/mcL (0.6-4.6); Mean Corpuscular HGB Conc 29.1 g/dL (31.6-35.5); Mean Corpuscular Hemoglobin 23.2 pg (28.0-33.3); Mean Corpuscular Volume 79.6 fL (83.0-100.0); Mean Platelet Volume 9.4 fL (9.4-12.4); Monocytes # 0.4 K/mcL (0.0-1.3); Monocytes % 5.7 %; Platelet Count 320 K/mcL (140-400); Red Blood Count 3.19 M/mcL (4.19-5.50); Red Cell Distribution Width 16.6 % (11.5-14.5); Segmented Neutrophils % 89.5 %
[2021-12-25 02:49] LABS: Neutrophils # 6.4 K/mcL (1.6-8.9); White Blood Count 7.1 K/mcL (4.3-11.1)
[2021-12-25 03:14] LABS: BUN/Creatinine Ratio 27 (6-26); Blood Urea Nitrogen 28 mg/dL (8-23); Calcium 8.4 mg/dL (8.6-10.3); Carbon Dioxide 33 mEq/L (23-29); Chloride 91 mEq/L (98-107); Glucose 98 mg/dL (70-105); Osmolality,Calculated 281 (280-300); Potassium 3.9 mEq/L (3.5-5.1); Sodium 133 mEq/L (136-145); eGFR For African Americans > 60 (> 60); eGFR For Non-African Americans > 60 (> 60)
[2021-12-25] MEDS: *HR* Heparin 5,000 UNIT/ML VIAL SQ SCH (05:37)
[2021-12-25 07:07] VITALS: BP 118/73; PULSE 73; TEMP 98.4; O2SAT 95
[2021-12-25] MEDS: predniSONE 20 MG TABLET PO SCH (08:07)
[2021-12-25] MEDS: Aspirin 81 MG TAB.CHEW PO SCH (08:07)
[2021-12-25] MEDS: Furosemide 40 MG TABLET PO SCH (08:07)
[2021-12-25] MEDS: Fluticasone Propionate Nasal 50 MCG/SPRAY BOTTLE NS SCH (08:08)
[2021-12-25] MEDS: levoFLOXacin 750 MG/150 ML 750 MG/150 ML BAG IVPB SCH (08:10)
[2021-12-25] MEDS ORDERED: Iron Sucrose Complex 400 MG in 0.9 % Sodium Chloride 250 ML IVPB ONE (09:00)
== END 2021-12-25 12:30 | disposition home or self-care (01) ==
LOC: 3BNU 03:23 → EMEROOARM 03:23 → SUATTDRO 06:38 → 3BNU 07:56
PROVIDERS: ADMIT Family Medicine; ATTEND Internal Medicine